=== PATIENT | female | born 1995 | race African-American/Black ===

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

== ENCOUNTER 2017-12-02 20:15 | Emergency (ER) | payer OTHER ==
[~2017-12-02] VITALS: Ht 162.6 cm; Wt 78.0 kg
[~2017-12-02 20:15] MED LIST: AZITHROMYCIN250 MG ORAL; NKM; ZYRTEC10 MG ORAL
[2017-12-02 21:09] LABS: APPEARANCE,URINE CLEAR; BILIRUBIN, URINE NEGATIVE (NEGATIVE); COLOR,URINE PALE YELLOW; GLUCOSE, URINE (UA) NEGATIVE (NEGATIVE); KETONES,URINE NEGATIVE (NEGATIVE); LEUKOCYTE ESTERASE ,URINE 3+ (NEGATIVE); NITRITE,URINE NEGATIVE (NEGATIVE); PH,URINE 7 (4.5-8.0); PROTEIN,URINE NEGATIVE (NEGATIVE); UROBILINOGEN,URINE 1 MG/DL (0.0-1.0)
[2017-12-02] MEDS ORDERED: KEFLEX500 MG ORAL (21:19)
[2017-12-02 21:27] LABS: BASOPHILS % (AUTO) 0.5 % (0.0-2.0); EOSINOPHILS % (AUTO) 0.4 % (0.0-3.0); HEMATOCRIT 38.2 % (37.0-47.0); HEMOGLOBIN 12.4 G/DL (12.0-16.0); LYMPHOCYTES % (AUTO) 30.9 % (20.0-45.0); MEAN CORPUSCULAR VOLUME 82 FL (80-99); NEUTROPHILS % (AUTO) 62.2 % (45.0-75.0); PLATELET COUNT 416 K/UL (150-450); RED BLOOD COUNT 4.68 M/UL (4.20-5.40); RED CELL DISTRIBUTION WIDTH 14.2 % (11.6-14.8); WHITE BLOOD COUNT 9.9 K/UL (4.8-10.8)
[2017-12-02] MEDS ORDERED: Cephalexin 250 MG/5 ML SUSP 100ml ORAL ONE (21:30)
[2017-12-02 21:35] LABS: ANION GAP 7 mmol/L (5-15); BLOOD UREA NITROGEN 9 mg/dL (7-18); CARBON DIOXIDE 27 MMOL/L (21-32); CHLORIDE 103 MMOL/L (98-107); CREATININE 0.8 MG/DL (0.55-1.30); POTASSIUM 3.4 MMOL/L (3.5-5.1); SODIUM 137 MMOL/L (136-145)
[2017-12-02 21:40] LABS: ALANINE AMINOTRANSFERASE 20 U/L (12-78); ALBUMIN 3.9 G/DL (3.4-5.0); ALBUMIN/GLOBULIN RATIO 0.9 (1.0-2.7); ALKALINE PHOSPHATASE 61 U/L (46-116); ASPARTATE AMINO TRANSFERASE 16 U/L (15-37); BILIRUBIN,TOTAL 0.2 MG/DL (0.2-1.0)
[2017-12-02] MEDS ORDERED: Cephalexin 500mg cap ONE (21:51)
[2017-12-02] MEDS ORDERED: Cephalexin 500mg cap ORAL ONE (22:00)
[2017-12-02 22:03] VITALS: BP 122/81
[2017-12-02 22:10] VITALS: BP 122/81
--- NOTE | 2017-12-03 09:19 | Diagnostic Imaging Report ---
Indication: Pelvic pain. status is pending. Technique: Grayscale and duplex Doppler imaging of the pelvis performed utilizing a transabdominal scan and endovaginal scan. Comparison: None Findings: There is a tiny cystic structure in the central part of the uterus. This could be an early intrauterine but is nonspecific at this point and the cystic structure is too small to date. There is no yolk sac or pole. Follow-up is suggested as well as correlation with quantitative beta hCG. There is a simple right ovarian cyst measuring about 1.3 cm. Dopplerable blood flow noted within both ovaries. There is no significant free fluid. IMPRESSION: Nonspecific findings. Possible early IUP. Correlation with quantitative beta hCG and follow up suggested.
--- NOTE | 2017-12-03 14:43 | Emergency Room Report ---
History of Present Illness General Chief Complaint: Female Urogenital Problems Source: Patient Present Illness HPI Patient is a 21-year-old female unknown the gestational age. Patient reportedly had recent. She test which was positive. She states that she been having increased urinary frequency and urgency. She denies any fever. She had not been vomiting. She denies any severe abdominal pain. Allergies: Coded Allergies: No Known Allergies (Unverified , 09/30/16) Patient History Past Medical History: see triage record Last Menstrual Period: Oct 13 Now: Yes : 1 Reviewed Nursing Documentation: PMH: Agreed; PSxH: Agreed Nursing Documentation-PM Past Medical History: No Stated History Review of Systems All Other Systems: negative except mentioned in HPI Physical Exam Vital Signs Date Time Temp Pulse Resp B/P (MAP) Pulse Ox O2 Delivery O2 Flow Rate FiO2 12/02/17 20:28 98.3 93 18 132/82 99 Room Air 98.2 General Appearance: well appearing, no apparent distress, alert, GCS 15, non- toxic Head: normocephalic, atraumatic ENT: hearing grossly normal, normal voice Neck: full range of motion, supple Respiratory: no respiratory distress, speaking full sentences Cardiovascular #1: normal inspection, normal peripheral pulses, regular rate, rhythm Musculoskeletal: normal inspection, no calf tenderness Neurologic: normal inspection, alert, oriented x3, responsive, normal gait Psychiatric: normal inspection, mood/affect normal Skin: normal inspection, no rash Medical Decision Making Diagnostic Impression: Primary Impression: Urinary tract infection Additional Impression: Early stage of ER Course Patient presented for dysuria. Differential diagnosis included was not limited to appendicitis, urinary tract infection, pelvic inflammatory disease, urethritis, herpes among others. The pelvic ultrasound was ordered and showed evidence of a gestational sac without evidence of free fluid or adnexal mass. She was given oral antibiotics. The urinalysis showed evidence of urinary infection. Patient is advised to follow-up with her COLORIST in the next few days for recheck. Last Vital Signs Date Time Temp Pulse Resp B/P (MAP) Pulse Ox O2 Delivery O2 Flow Rate FiO2 12/02/17 22:10 98.3 93 16 122/81 99 Room Air 98.3 Status: improved Disposition: HOME, SELF-CARE Condition: Improved Scripts Cephalexin* (KEFLEX*) 500 Mg Capsule 500 MG ORAL Q6H, #28 CAP 0 Refills Prov: Guanakito Elise 12/02/17 Referrals: [facility],REFERRING (PCP) Patient Instructions: Urinary Tract Infection Guanakito Elise Dec 03, 2017 14:43
== END 2017-12-02 22:10 | disposition home or self-care (01) ==
LOC: EMR 21:32
DX: O23.41 Unspecified infection of urinary tract in pregnancy, first trimester (principal); Z3A.00 Weeks of gestation of pregnancy not specified
CPT/HCPCS: 36415; 76856; 80053; 81003; 81025; 84702; 85025; 87086; 99283

== ENCOUNTER 2018-01-11 16:39 | Emergency (ER) | payer OTHER ==
[~2018-01-11] VITALS: Ht 162.6 cm; Wt 81.6 kg
[~2018-01-11 16:39] MED LIST changes: +KEFLEX500 MG ORAL
--- NOTE | 2018-01-11 17:08 | Emergency Room Report ---
History of Present Illness General Chief Complaint: Dizziness Source: Patient Present Illness HPI Patient present with complaints of sore throat Upon being triaged the patient was hypotensive On further questioning patient reported feeling lightheaded and dizzy With further questioning patient reports that her last menstrual cycle was in September However she had a miscarriage in beginning of month of December Patient did have increased bleeding at that time Currently has sore throat 8 out of 10 Worse with swallowing Denies any change in voice Patient reports that she was told she was anemic previously and has been put on iron pills Denies currently bleeding Allergies: Coded Allergies: No Known Allergies (Unverified , 09/30/16) Patient History Past Medical History: see triage record Pertinent Family History: none Last Menstrual Period: 10/13/17 Reviewed Nursing Documentation: PMH: Agreed; PSxH: Agreed Nursing Documentation-PM Past Medical History: No Stated History Review of Systems All Other Systems: negative except mentioned in HPI Physical Exam Vital Signs Date Time Temp Pulse Resp B/P (MAP) Pulse Ox O2 Delivery O2 Flow Rate FiO2 01/11/18 16:50 98.4 60 18 79/50 98 Room Air 98.4 Sp02 EP Interpretation: reviewed, normal General Appearance: mild distress - Patient appears pale Head: normocephalic, atraumatic Eyes: bilateral eye PERRL, bilateral eye EOMI ENT: pharyngeal erythema - With pustules in the left side, uvula midline Neck: supple Respiratory: lungs clear Cardiovascular #1: regular rate, rhythm, no edema Gastrointestinal: non tender, soft, no mass Musculoskeletal: normal inspection Neurologic: alert, oriented x3, responsive Skin: pallor Lymphatic: no adenopathy Medical Decision Making Diagnostic Impression: Primary Impression: Sepsis Additional Impression: Pharyngitis ER Course Given the patient's presentation concern is regarding sepsis Severe sepsis patient is Complex requiring multiple imaging and blood work Patient's blood pressure however has improved significantly Patient's white blood cell count is elevated patient provided further hydration CT imaging was done which does not show any obvious abscess which correlates clinically Patient does require further inpatient care and is transferred secondary to insurance purposes Labs Test 01/11/18 17:25 01/11/18 17:28 White Blood Count 16.4 K/UL (4.8-10.8) Red Blood Count 4.20 M/UL (4.20-5.40) Hemoglobin 11.1 G/DL (12.0-16.0) Hematocrit 33.7 % (37.0-47.0) Mean Corpuscular Volume 80 FL (80-99) Mean Corpuscular Hemoglobin 26.4 PG (27.0-31.0) Mean Corpuscular Hemoglobin Concent 32.9 G/DL (32.0-36.0) Red Cell Distribution Width 13.3 % (11.6-14.8) Platelet Count 360 K/UL (150-450) Mean Platelet Volume 5.0 FL (6.5-10.1) Neutrophils (%) (Auto) 83.4 % (45.0-75.0) Lymphocytes (%) (Auto) 8.2 % (20.0-45.0) Monocytes (%) (Auto) 7.7 % (1.0-10.0) Eosinophils (%) (Auto) 0.0 % (0.0-3.0) Basophils (%) (Auto) 0.7 % (0.0-2.0) Sodium Level 138 MMOL/L (136-145) Potassium Level 3.3 MMOL/L (3.5-5.1) Chloride Level 100 MMOL/L (98-107) Carbon Dioxide Level 23 MMOL/L (21-32) Anion Gap 15 mmol/L (5-15) Blood Urea Nitrogen 13 mg/dL (7-18) Creatinine 1.1 MG/DL (0.55-1.30) Estimat Glomerular Filtration Rate > 60 mL/min (>60) Glucose Level 156 MG/DL (74-106) Calcium Level 8.2 MG/DL (8.5-10.1) Total Bilirubin 0.5 MG/DL (0.2-1.0) Aspartate Amino Transf (AST/SGOT) 7 U/L (15-37) Alanine Aminotransferase (ALT/SGPT) 17 U/L (12-78) Alkaline Phosphatase 65 U/L (46-116) Total Protein 8.3 G/DL (6.4-8.2) Albumin 3.6 G/DL (3.4-5.0) Globulin 4.7 g/dL Albumin/Globulin Ratio 0.8 (1.0-2.7) Human Chorionic Gonadotropin, Quant 2 mIU/mL (1-6) Urine Color Brown Urine Appearance Clear Urine pH 5 (4.5-8.0) Urine Specific [place] 1.030 (1.005-1.035) Urine Protein 2+ (NEGATIVE) Urine Glucose (UA) Negative (NEGATIVE) Urine Ketones 1+ (NEGATIVE) Urine Occult Blood 1+ (NEGATIVE) Urine Nitrite Negative (NEGATIVE) Urine Bilirubin Negative (NEGATIVE) Urine Urobilinogen 1 MG/DL (0.0-1.0) Urine Leukocyte Esterase 1+ (NEGATIVE) Urine RBC 2-4 /HPF (0 - 2) Urine WBC 0-2 /HPF (0 - 2) Urine Squamous Epithelial Cells Few /LPF (NONE/OCC) Urine Bacteria Few /HPF (NONE) CT/MRI/US Diagnostic Results CT/MRI/US Diagnostic Results : Impression CT neck: No obvious abscess Ultrasound pelvic: No acute disease Last Vital Signs Date Time Temp Pulse Resp B/P (MAP) Pulse Ox O2 Delivery O2 Flow Rate FiO2 01/11/18 16:50 98.4 60 18 79/50 98 Room Air 98.4 Status: improved [facility] Condition: Serious Refugio Maurice DO January 11, 2018 17:08
[2018-01-11] MEDS ORDERED: Ketorolac 30mg Inj IV ONE (17:15)
[2018-01-11] MEDS ORDERED: Solu-MEDROL 125mg Inj IVP ONE (17:15)
[2018-01-11] MEDS ORDERED: Ampicillin/Sulbactam Sod 3 GM in NS 110 ML IVPB ONE (17:15)
[2018-01-11 17:46] LABS: APPEARANCE,URINE CLEAR; BILIRUBIN, URINE NEGATIVE (NEGATIVE); COLOR,URINE BROWN; GLUCOSE, URINE (UA) NEGATIVE (NEGATIVE); KETONES,URINE 1+ (NEGATIVE); LEUKOCYTE ESTERASE ,URINE 1+ (NEGATIVE); NITRITE,URINE NEGATIVE (NEGATIVE); PH,URINE 5 (4.5-8.0); PROTEIN,URINE 2+ (NEGATIVE); UROBILINOGEN,URINE 1 MG/DL (0.0-1.0)
[2018-01-11 17:52] LABS: BASOPHILS % (AUTO) 0.7 % (0.0-2.0); HEMATOCRIT 33.7 % (37.0-47.0); HEMOGLOBIN 11.1 G/DL (12.0-16.0); LYMPHOCYTES % (AUTO) 8.2 % (20.0-45.0); MEAN CORPUSCULAR VOLUME 80 FL (80-99); MONOCYTES % (AUTO) 7.7 % (1.0-10.0); NEUTROPHILS % (AUTO) 83.4 % (45.0-75.0); PLATELET COUNT 360 K/UL (150-450); RED CELL DISTRIBUTION WIDTH 13.3 % (11.6-14.8); WHITE BLOOD COUNT 16.4 K/UL (4.8-10.8)
[2018-01-11 18:05] LABS: ANION GAP 15 mmol/L (5-15); BLOOD UREA NITROGEN 13 mg/dL (7-18); CALCIUM 8.2 MG/DL (8.5-10.1); CARBON DIOXIDE 23 MMOL/L (21-32); CHLORIDE 100 MMOL/L (98-107); CREATININE 1.1 MG/DL (0.55-1.30); POTASSIUM 3.3 MMOL/L (3.5-5.1); SODIUM 138 MMOL/L (136-145)
[2018-01-11 18:10] LABS: ALANINE AMINOTRANSFERASE 17 U/L (12-78); ALBUMIN 3.6 G/DL (3.4-5.0); ALBUMIN/GLOBULIN RATIO 0.8 (1.0-2.7); ALKALINE PHOSPHATASE 65 U/L (46-116); ASPARTATE AMINO TRANSFERASE 7 U/L (15-37); BILIRUBIN,TOTAL 0.5 MG/DL (0.2-1.0)
[2018-01-11] MEDS ORDERED: FERROUS SULFAT325 MG ORAL (18:34)
[2018-01-11] MEDS ORDERED: Unasyn 3gm Inj ONE ×2 (18:38→18:43)
[2018-01-11] MEDS ORDERED: TYLENOL EXTRA500 MG ORAL (18:38)
[2018-01-11] MEDS ORDERED: Isovue-300 100ml vial INJ PRN (19:15)
[2018-01-11 21:54] VITALS: BP 108/67
[2018-01-11 22:30] VITALS: BP 108/67
--- NOTE | 2018-01-12 08:48 | Diagnostic Imaging Report ---
Indication: Pelvic pain, history of recent miscarriage 12 days earlier Technique: Transabdominal and transvaginal images Comparison: none Findings: Uterus measures 7.1 cm in length by 4.9 cm AP. Endometrium measures 5 mm thick. No endometrial abnormality demonstrated. No myometrial abnormality. Right ovary measures 3.1 cm length. Left ovary measures 2.8 cm length. Trace free fluid is seen in the cul-de-sac Impression: Negative. No evidence of retained products of conception Trace free pelvic fluid, presumed physiologic
--- NOTE | 2018-01-12 10:13 | Diagnostic Imaging Report ---
Indication: Reason For Exam: PAIN Technique: IV administration nonionic contrast. Spiral acquisitions obtained through the Multiplanar reconstructions were generated. Total dose length product 527.28 mGycm. CTDIvol(s) 19.51 mGy. Radiation dose was minimized using automated exposure control Comparison: none Findings: There is generalized mild symmetric prominence to the tonsils and adenoids. No evidence of peritonsillar or other neck abscess demonstrated. The parapharyngeal spaces are clear, symmetric. The nasopharynx, oropharynx, hypopharynx, larynx all appear unremarkable. The trachea is unremarkable. The thyroid is unremarkable. There are symmetric prominent jugulodigastric nodes bilaterally, which measure up to 2.6 cm long axis dimension. The salivary glands appear unremarkable. The included upper mediastinum is unremarkable. The included lung apices are clear. The bones are unremarkable. Impression: Nonspecific symmetric bilateral tonsillar prominence and prominent bilateral jugulodigastric nodes No evidence of abscess This agrees with the preliminary interpretation provided overnight by [facility] service. The CT scanner at [facility] is accredited by the [employer] and the scans are performed using protocols designed to limit radiation exposure to as low as reasonably achievable to attain images of sufficient resolution adequate for diagnostic evaluation.
== END 2018-01-11 22:30 | disposition short-term general hospital (02) ==
LOC: EMR 17:35
DX: A41.9 Sepsis, unspecified organism (principal); J02.9 Acute pharyngitis, unspecified
CPT/HCPCS: 36415; 70491; 76830; 76856; 80053; 81003; 82962; 84702; 85025; 86850; 86900; 86901; 87040; 96374; 96375; 99285; J1885; J2405; J2930; Q9967

== ENCOUNTER 2018-01-13 19:49 | Emergency (ER) | payer OTHER ==
[~2018-01-13] VITALS: Ht 162.6 cm; Wt 81.6 kg
[~2018-01-13 19:49] MED LIST changes: +FERROUS SULFAT325 MG ORAL; +TYLENOL EXTRA500 MG ORAL
[2018-01-13 19:53] VITALS: BP 123/79
[2018-01-13 20:00] VITALS: BP 125/81
[2018-01-13] MEDS ORDERED: AUGMENTIN 875-1 EAC1 ORAL (20:14)
--- NOTE | 2018-01-13 21:30 | Emergency Room Report ---
History of Present Illness General Chief Complaint: Sore Throat Source: Patient Present Illness HPI Patient is a 22-year-old female who presented after increased sore throat. Patient had recently been discharged from the hospital after episode of tonsillitis. Patient recent CT imaging which showed no evidence of abscess. The patient denied any fever. She had recently been hospitalized at [facility]. The patient had been seen by ENT Allergies: Coded Allergies: No Known Allergies (Unverified , 09/30/16) Patient History Past Medical History: see triage record Last Menstrual Period: december Reviewed Nursing Documentation: PMH: Agreed; PSxH: Agreed Review of Systems All Other Systems: negative except mentioned in HPI Physical Exam Vital Signs Date Time Temp Pulse Resp B/P (MAP) Pulse Ox O2 Delivery O2 Flow Rate FiO2 01/13/18 19:53 98.1 78 16 123/79 97 Room Air 98.1 General Appearance: well appearing, no apparent distress, alert, GCS 15 Head: normocephalic, atraumatic ENT: hearing grossly normal, normal voice Neck: full range of motion, supple Respiratory: no respiratory distress, speaking full sentences Cardiovascular #1: normal peripheral pulses, regular rate, rhythm, no edema Gastrointestinal: normal bowel sounds, non tender, soft Musculoskeletal: normal inspection, back normal, digits/nails normal, no calf tenderness Neurologic: normal inspection, alert, oriented x3, responsive, normal gait Psychiatric: mood/affect normal Skin: no rash Medical Decision Making Diagnostic Impression: Primary Impression: Acute bacterial tonsillitis ER Course Patient presented for sore throat. Differential diagnosis included but was not limited to meningitis, exudative tonsillitis, retropharyngeal abscess, epiglottitis, strep pharyngitis. Patient has a benign exam and does not appear to require any further imaging or laboratory testing at this time. The patient has a appears to be tonsillitis. This appears to be bacterial and the patient been prescribed oral antibiotics. The patient shows no signs of abscess. The patient is advised to follow up with primary care doctor in 1-2 days. Patient is advised to return if any worsening condition or if any changes in status that are concerning. This report is dictated with [employer] glass pulverizer equipment operator software which may occasionally lead to discrepancies related to use of this software. Last Vital Signs Date Time Temp Pulse Resp B/P (MAP) Pulse Ox O2 Delivery O2 Flow Rate FiO2 01/13/18 20:20 98.1 16 123/79 97 Room Air 98.1 01/13/18 20:00 80 Status: improved Disposition: HOME, SELF-CARE Condition: Stable Scripts Amoxicillin/Potassium Clav 875-125* (AUGMENTIN 875-125 TABLET*) 1 Each Tablet 1 TAB ORAL TWICE A DAY, #14 TAB Prov: Guanakito Elise MD 01/13/18 Referrals: [facility],REFERRING (PCP) Patient Instructions: Tonsillitis Additional Instructions: Recheck in 2 days with your physician. Return if worsened. Guanakito Elise MD January 13, 2018 21:30
== END 2018-01-13 20:20 | disposition home or self-care (01) ==
LOC: EMR 20:15
DX: J03.80 Acute tonsillitis due to other specified organisms (principal); B96.89 Other specified bacterial agents as the cause of diseases classified elsewhere
CPT/HCPCS: 99283

== ENCOUNTER 2019-10-05 11:38 | Emergency (ER) | payer MEDICAID, OTHER ==
[~2019-10-05] VITALS: Ht 162.6 cm; Wt 86.2 kg
[~2019-10-05 11:38] MED LIST changes: +AUGMENTIN 875-1 EAC1 ORAL
--- NOTE | 2019-10-05 11:48 | NUR ---
ED Nurse Note: PT walke in to ED for C/O dry cough with headache x 3 days.
[2019-10-05 11:49] VITALS: BP 120/81
--- NOTE | 2019-10-05 12:12 | NUR ---
ED Nurse Note: Report given to Felicia Ugalde RN. Endorsed plan of care.
--- NOTE | 2019-10-05 13:15 | NUR ---
ED Nurse Note:flu swab was sent to labs
--- NOTE | 2019-10-05 13:44 | Emergency Room Report ---
History of Present Illness General Chief Complaint: Upper Respiratory Illness Source: Patient Present Illness HPI Patient is a 23-year-old female denies any significant past medical history who presents to the ER complaining of flulike symptoms for the past couple days. Patient complains of myalgias, cough, mild generalized headache and nasal congestion. Patient states that her family members at home have the same symptoms. She did not receive her influenza vaccine this year. She denies any documented fever or chills. She denies any chest pain or shortness of breath. She denies any abdominal pain, nausea or vomiting. She denies any dysuria or hematuria. She states that there is no possibility of her being . Patient denies any history of smoking. Allergies: Coded Allergies: No Known Allergies (Unverified , 09/30/16) Patient History Past Medical History: none Past Surgical History: none Social History: Denies: smoking, alcohol use, drug use Last Menstrual Period: 08/21/2019 Now: No Reviewed Nursing Documentation: PMH: Agreed; PSxH: Agreed Nursing Documentation-PMH Past Medical History: No History, Except For Review of Systems All Other Systems: negative except mentioned in HPI Physical Exam Vital Signs Date Time Temp Pulse Resp B/P (MAP) Pulse Ox O2 Delivery O2 Flow Rate FiO2 10/05/19 11:44 98.4 92 16 115/76 (89) 99 Room Air Sp02 EP Interpretation: reviewed, normal General Appearance: no apparent distress, alert, GCS 15, non-toxic Head: normocephalic, atraumatic Eyes: bilateral eye normal inspection, bilateral eye PERRL ENT: hearing grossly normal, normal pharynx, no angioedema, normal voice, nasal congestion Neck: full range of motion, supple/symm/no masses Respiratory: chest non-tender, lungs clear, normal breath sounds, speaking full sentences Cardiovascular #1: regular rate, rhythm, no edema Cardiovascular #2: 2+ carotid (R), 2+ carotid (L), 2+ radial (R), 2+ radial (L) , 2+ dorsalis pedis (R), 2+ dorsalis pedis (L) Gastrointestinal: normal bowel sounds, non tender, soft, non-distended, no guarding, no rebound Rectal: deferred Genitourinary: normal inspection, no CVA tenderness Musculoskeletal: back normal, normal range of motion, calf tenderness, gait/ station normal, non-tender Neurologic: alert, motor strength/tone normal, oriented x3, sensory intact, responsive, speech normal Psychiatric: judgement/insight normal, memory normal, mood/affect normal, no suicidal/homicidal ideation Reflexes: 3+ bicep (R), 3+ bicep (L), 3+ tricep (R), 3+ tricep (L), 3+ knee (R) , 3+ knee (L) Lymphatic: no adenopathy Medical Decision Making Diagnostic Impression: Primary Impression: URI (upper respiratory infection) ER Course Patient in no acute distress. Vital signs are stable. Chest x-ray demonstrates no acute infiltrate. Patient will be treated for her URI. After discussing risks and benefits of further diagnostics, treatment plans, as well as indications for and risks of admission, the patient is agreeable to being discharged home. I have explained that their evaluation and treatment in the emergency department today is an important step towards them achieving better health but that their evaluation today is not intended to replace further evaluation and treatment by a physician in their local clinic. I have explained that while the current findings suggest no immediate life threatening emergency they will require further evaluation and treatment by a physician of their choice in their area. They understand that it will be necessary for them to review the final reports of their ED visit with their clinic physician. We have reviewed indications for return to the Emergency Department. I have explained that additional time may need to pass and/or additional testing as an outpatient may be necessary before a definitive diagnosis can be made. They tell me they are willing to follow up as instructed within the timeframe I recommend. They appear to understand what we discussed. Additionally they understand that if they are unable to be seen by an outpatient physician they are welcome, and in fact should, return to the Emergency Department for a repeat evaluation. The patient is stable at time of discharge. Last Vital Signs Date Time Temp Pulse Resp B/P (MAP) Pulse Ox O2 Delivery O2 Flow Rate FiO2 10/05/19 12:16 98.4 10/05/19 11:49 89 16 120/81 99 Room Air Disposition: HOME, SELF-CARE Condition: Stable Scripts Ibuprofen (Ibuprofen) 600 Mg Tablet 600 MG PO EVERY 8 HOURS, #30 TAB Prov: Barbara Salinas M.D. 10/05/19 Guaifen/Dextromethorphan/PE (Dm-Guaif-PE 18-200-10 mg/15 ml) 240 Ml Liquid 240 ML PO EVERY 6 HOURS PRN for For Cough for 7 Days, ML Prov: Barbara Salinas M.D. 10/05/19 Albuterol Sulfate* (ALBUTEROL SULFATE MDI*) 8.5 Gm Hfa.aer.ad 2 PUFF INH Q4H PRN for cough/wheezing, #1 EA 0 Refills Prov: Barbara Salinas M.D. 10/05/19 Referrals: NOT [facility]/,REFERRING (PCP) Additional Instructions: Patient discharged in stable condition and will follow up with her primary care physician in 1 to 2 days Barbara Salinas M.D. Oct 05, 2019 13:44
[2019-10-05 14:00] VITALS: BP 120/81
[2019-10-05] MEDS ORDERED: IBUPROFEN600 M1 PO (14:00)
[2019-10-05] MEDS ORDERED: ALBUTEROL SULF8.5 GM INH (14:00)
[2019-10-05] MEDS ORDERED: DM-GUAIF-PE 18240 ML PO (14:00)
--- NOTE | 2019-10-05 14:00 | NUR ---
ER DISCHARGE NOTE: Patient is cleared to be discharged per ERMD, pt is aox4, on room air, with stable vital signs. pt was given dc and prescription instructions, pt was able to verbalize understanding, pt is able to ambulate with steady gait. pt took all belongings.
--- NOTE | 2019-10-05 16:06 | Diagnostic Imaging Report ---
Indication: Cough Comparison: None A single view chest radiograph was obtained. Findings: There is a faint density in the right upper lobe. Given cough, findings could be due to pneumonia. Correlate clinically. Follow-up recommended. Heart size is normal. Pulmonary vascularity is normal. Bones are unremarkable. IMPRESSION: Suspected pneumonia in the right upper lobe.
== END 2019-10-05 14:10 | disposition home or self-care (01) ==
LOC: EMR 12:55
DX: J06.9 Acute upper respiratory infection, unspecified (principal)
CPT/HCPCS: 71045; 86710; Z7502; 99283